=== PATIENT | male | born 1975 | race Caucasian/White ===

== ENCOUNTER 2021-08-01 08:00 | Outpatient (RCR) | payer OTHER, SELFPAY | END 2021-08-01 08:05 | disposition home or self-care (01) | LOC: OT 08:00 | PROVIDERS: PCP Nurse Practitioner Family; Visit Provider Family Medicine | DX: S43.429D Sprain of unspecified rotator cuff capsule, subsequent encounter (principal) | CPT/HCPCS: 97010; 97014; 97110; 97166; 97530; G0283 ==